=== PATIENT | female | born 1960 | race Two or more races ===

== ENCOUNTER 2017-07-11 15:38 | Emergency (ER) | payer OTHER ==
--- NOTE | 2017-07-11 16:18 | EDM.PDOC ---
ED HPI GENERAL MEDICAL PROBLEM - General Chief Complaint: Back Pain or Injury Stated Complaint: BACK PAIN Time Seen by Provider: 07/11/17 15:53 Source of Information: Reports: Patient History Limitations: Reports: No Limitations - History of Present Illness INITIAL COMMENTS - FREE TEXT/NARRATIVE: HISTORY AND PHYSICAL: History of present illness: Patient fell approximately 2 weeks ago on the ice landing on her buttocks. Since that time she had had some low back pain that radiates into the left gluteal. She states she can feel a "ball" to the left low back. She denies hitting her head or any loss of consciousness. Denies any numbness or tingling to her lower extremities. She does not take any blood thinners. She ambulates without difficulty. No urinary or bowel incontinence. Review of systems: As per history of present illness and below otherwise all systems reviewed and negative. Past medical history: As per history of present illness and as reviewed below otherwise noncontributory. Surgical history: As per history of present illness and as reviewed below otherwise noncontributory. Social history: No reported history of drug or alcohol abuse. Family history: As per history of present illness and as reviewed below otherwise noncontributory. Physical exam: General: Well-developed and well-nourished 57-year-old female. Alert and oriented. Nontoxic appearing and in no acute distress HEENT: Atraumatic, normocephalic, pupils reactive, negative for conjunctival pallor or scleral icterus, mucous membranes moist, throat clear, neck supple, nontender, trachea midline. Lungs: Clear to auscultation, breath sounds equal bilaterally, chest nontender. Heart: S1S2, regular, negative for clicks, rubs, or JVD. Abdomen: Soft, nondistended, nontender. Negative for masses or hepatosplenomegaly. Negative for costovertebral tenderness. Pelvis: Stable nontender. Genitourinary: Deferred. Rectal: Deferred. C-Spine/Back: No pinpoint vertebral tenderness upon palpation. Able to walk on her toes and heels without difficulty. Gait is steady and even. Does have some muscular tenderness over the left posterior hip into the glute. Extremities: Moves all extremities per self with full range of motion -deficits noted. She is negative for cords or calf pain. Neurovascular unremarkable. Neuro: Awake, alert, oriented. Cranial nerves II through XII unremarkable. Cerebellum unremarkable. Motor and sensory unremarkable throughout. Exam nonfocal. Mild curvature noted. Minimal degenerative disc height loss mid to lower lumbar spine with relative sparing L5-S1. No acute fracture. Prescription for Flexeril (#21, NRF) and diclofenac (#20, NRF) will be given. Gentle heat to the area. Follow up with her primary care provider in the next couple days. The patient voices understanding is agreeable to plan of care. She denies any questions at this time. Diagnostics: Lumbar xray Therapeutics: Toradol Impression: Lumbar back pain w/ sciatica Plan: 1. Please take the medications as directed. Flexeril may cause drowsiness so do not take when driving or needing to be functioning at work. Do not take any additional NSAIDs such as Ibuprofen or Aleve when taking the Diclofenac. Take with food. 2. Appply gentle heat to the area 3. Follow up with the primary caregiver in the next couple days. Return to the ED as needed and as discussed. Definitive disposition and diagnosis as appropriate pending reevaluation and review of above. Duration: Day(s): Location: Reports: Back back Pain Score (Numeric/FACES): 6 - Related Data Allergies Allergy/AdvReac Type Severity Reaction Status Date / Time No Known Allergies Allergy Verified 07/11/17 15:59 Home Meds: Home Meds . [No Known Home Meds] 07/11/17 [History] Past Medical History - Past Health History Medical/Surgical History: Denies Medical/Surgical History Social & Family History - Family History Family Medical History: Noncontributory - Tobacco Use Smoking Status *Q: Never Smoker Years of Tobacco use: 10 - Alcohol Use Days Per Week of Alcohol Use: 0 - Recreational Drug Use Recreational Drug Use: No ED ROS GENERAL - Review of Systems Review Of Systems: ROS reveals no pertinent complaints other than HPI. ED EXAM,LOWER BACK PAIN/INJURY - Physical Exam Exam: See Below (See dictation) Course - Vital Signs Last Recorded V/S: Last Vital Signs Temp 97.4 F 07/11/17 15:59 Pulse 76 07/11/17 15:59 Resp 18 07/11/17 15:59 BP 149/70 H 07/11/17 15:59 Pulse Ox 96 07/11/17 15:59 - Orders/Labs/Meds Orders: Active Orders 24 hr Category Date Time Status Lumbar Spine 2 or 3V [CR] Stat Exams 07/11/17 16:11 Taken Meds: Medications Discontinued Medications Generic Name Dose Route Start Last Admin Trade Name Gael PRN Reason Stop Dose Admin Ketorolac Tromethamine 60 mg 07/11/17 16:19 Toradol IM 07/11/17 16:20 ONETIME ONE Departure - Departure Time of Disposition: 17:34 Disposition: Home, Self-Care 01 Clinical Impression: Back pain with sciatica - Discharge Information Instructions: Sciatica, [id number] Referrals: PCP,None [Primary Care Provider] - Forms: ED Department Discharge Additional Instructions: My general discharge The following information is given to patients seen in the emergency department who are being discharged to home. This information is to outline your options for follow-up care. We provide all patients seen in our emergency department with a follow-up referral. The need for follow-up, as well as the timing and circumstances, are variable depending upon the specifics of your emergency department visit. If you don't have a primary care physician on staff, we will provide you with a referral. We always advise you to contact your personal physician following an emergency department visit to inform them of the circumstance of the visit and for follow-up with them and/or the need for any referrals to a consulting specialist. The emergency department will also refer you to a specialist when appropriate. This referral assures that you have the opportunity for follow-up care with a specialist. All of these measure are taken in an effort to provide you with optimal care, which includes your follow-up. Under all circumstances we always encourage you to contact your private physician who remains a resource for coordinating your care. When calling for follow-up care, please make the office aware that this follow-up is from your recent emergency room visit. If for any reason you are refused follow-up, please contact the [facility] Emergency Department at and asked to speak to the emergency department charge nurse. [facility] [address] [place] [id number] 1. Please take the medications as directed. Flexeril may cause drowsiness so do not take when driving or needing to be functioning at work. Do not take any additional NSAIDs such as Ibuprofen or Aleve when taking the Diclofenac. Take with food. 2. Appply gentle heat to the area 3. Follow up with the primary caregiver in the next couple days. Return to the ED as needed and as discussed. - My Orders Last 24 Hours: My Active Orders 07/11/17 16:11 Lumbar Spine 2 or 3V [CR] Stat - Assessment/Plan Last 24 Hours: My Active Orders 07/11/17 16:11 Lumbar Spine 2 or 3V [CR] Stat
[2017-07-11] MEDS ORDERED: Ketorolac 60 MG/2 ML SDV IM ONE (16:19)
--- NOTE | 2017-07-14 10:38 | CR ---
EXAM DATE: 07/11/17 PATIENT'S AGE: 57 Patient: JAVON BURNS Facility: [place], [place] Site . Site : 1960 Study: XRay Spine Lumbar [id number]/26/2018 5:09:57 PM Ordering Physician: Doctor Curry Final Report: INDICATION: Pain after fall. TECHNIQUE: Three views. IMPRESSION: Mild rightward curve centered L3 could be positional or mild scoliosis. Minimal degenerative disc height loss mid to lower lumbar spine with relative sparing L5 -S1. No acute fracture. Visualized pelvis intact. Normal appearance of the sacroiliac joints. Dictated by Scott Lira MD @ Jul 11 2017 5:25PM (Electronic Signature) Report Signed by Proxy. DAISY
== END 2017-07-11 18:01 | disposition home or self-care (01) ==
LOC: MW.ED 15:38
DX: M54.42 Lumbago with sciatica, left side (principal)
CPT/HCPCS: 72100; 72100-26; 99283; 99284

== ENCOUNTER 2018-10-20 23:15 | Emergency (ER) | payer MEDICAID, OTHER ==
[2018-10-20] MEDS ORDERED: Sodium Chloride 0.9% 2.5 ML Syringe FLUSH PRN (23:40)
[2018-10-20] MEDS ORDERED: Sodium Chloride 0.9% 10 ML Syringe FLUSH PRN (23:40)
--- NOTE | 2018-10-20 23:45 | EDM.PDOC ---
ED HPI GENERAL MEDICAL PROBLEM - General Chief Complaint: General Stated Complaint: DIZZINESS Time Seen by Provider: 10/20/18 23:24 - History of Present Illness INITIAL COMMENTS - FREE TEXT/NARRATIVE: HISTORY AND PHYSICAL: History of present illness: The patient is a 58 year-old female who presents with multiple complaints to the ED. She says she has had tingling intermittently of her lower extremities for greater than 1 year and she has met with a provider at [facility] regarding that. She is currently having her thyroid evaluated and has an ultrasound scheduled per the computer. She presents today for evaluation of a nosebleed that she has had on and off sporadically but today it was mostly bleeding from the right side of her nose and it seemed to take a long time for it to stop but it is unclear how she was trying to stop it with the pressure. She does not have a headache but she has had intermittent dizziness but no syncope. She has no chest pain or shortness of breath and no abdominal pain but she says that today she had 3 episodes of watery diarrhea and there was blood in it. She has never had GI problems and denies abdominal surgical procedures. She has no pain with a bowel movement in her abdomen or in her anus/rectal area. The patient has no flank pain but says she has had increased urine output without dysuria or hematuria. She is eating and drinking normally. She has no focal weakness and she has not fallen hit her head or passed out. She has no head neck or back pain. With the diarrhea today she did not have fevers chills or upper respiratory symptoms and she has had no nausea or vomiting. In general the patient's symptoms to be all over the map and is unclear what she has discussed with her provider at [facility] and what she has not had addressed there. I have no access to that information. I did discuss with the patient her elevated blood pressure here on initial triage and she says she has no history of hypertension. Review of systems: As per history of present illness and below otherwise all systems reviewed and negative. Past medical history: As per history of present illness and as reviewed below otherwise noncontributory. Surgical history: As per history of present illness and as reviewed below otherwise noncontributory. Social history: No reported history of drug or alcohol abuse. Family history: As per history of present illness and as reviewed below otherwise noncontributory. Physical exam: General: Well-developed well-nourished female who is nontoxic and vital signs are noted by me. She ambulates around the ED and moves very easily. HEENT: Atraumatic, normocephalic, pupils reactive, negative for conjunctival pallor or scleral icterus, mucous membranes moist, throat clear, neck supple, nontender, trachea midline. There is no cervical adenopathy or nuchal rigidity and on examination of her nose there is no evidence of any excoriation or bleeding on the right side which is the area she says was bleeding but there is irritation of the mucosal surface throughout the left side and in the anterior turbinates. Lungs: Clear to auscultation, breath sounds equal bilaterally, chest nontender. Heart: S1S2, regular rhythm and slightly tachycardic rate on my evaluation, negative for clicks, rubs, or JVD. There are no overt murmurs appreciated Abdomen: Soft, nondistended, nontender. Negative for masses or hepatosplenomegaly. Negative for costovertebral tenderness. Pelvis: Stable nontender. Genitourinary: Deferred. Rectal: No external masses or fissures and no internal masses on digital exam. There is only a scant amount of mucus and small bit of stool in the vault which is Hemoccult positive but visually looks light brown Extremities: Atraumatic, negative for cords or calf pain. Neurovascular unremarkable. Full range of motion without defects or deficits and no pedal edema or leg asymmetry Neuro: Awake, alert, oriented. Cranial nerves II through XII unremarkable. Cerebellum unremarkable. Motor and sensory unremarkable throughout. Exam nonfocal. Diagnostics: EKG CBC CMP INR UA with reflex CT scan of the head orthostatic vitals one view chest x-ray Therapeutics: IV O2 monitor I discussed with the patient that she would need further workup of all of her symptoms with her provider at [facility] and that she needed to contact her this morning to discuss today's ER visit. There are multiple issues that need to be addressed on an outpatient basis including possible colonoscopy for her diarrhea with rectal bleeding if that continues, her hypertension here to see whether or not that needs pharmacologic management as well as her chronic problems of the paresthesias. She and her family at bedside state understanding. Patient is also aware that she has a hiatal hernia but she tells me that she has no symptoms Impression: Diarrhea with rectal bleeding stable, episodic lightheadedness stable; hypertension History of anterior epistaxis stable, history of paresthesias chronic stable Incidental hiatal hernia Definitive disposition and diagnosis as appropriate pending reevaluation and review of above. - Related Data Allergies Allergy/AdvReac Type Severity Reaction Status Date / Time No Known Allergies Allergy Verified 10/20/18 23:33 Home Meds: Home Meds . [No Known Home Meds] 07/11/17 [History] Past Medical History - Past Health History Medical/Surgical History: Denies Medical/Surgical History [employer] History: Reports: Neurological History: Reports: Vertigo Psychiatric History: Reports: Depression - Past Surgical History Female Surgical History: Reports: Section, Hysterectomy Social & Family History - Family History Family Medical History: Noncontributory - Tobacco Use Smoking Status *Q: Never Smoker - Recreational Drug Use Recreational Drug Use: No ED ROS GENERAL - Review of Systems Review Of Systems: ROS reveals no pertinent complaints other than HPI. ED EXAM, GENERAL - Physical Exam Exam: See Below (See dictation) Course - Vital Signs Last Recorded V/S: Last Vital Signs Temp 36.2 C 10/20/18 23:29 Pulse 102 H 10/20/18 23:29 Resp BP 171/104 H 10/20/18 23:29 Pulse Ox 99 10/20/18 23:29 Orthostatic Blood Pressure [ 178/107 Standing] Orthostatic Blood Pressure [ 168/99 Sitting] Orthostatic Blood Pressure [ 147/98 Supine] - Orders/Labs/Meds Orders: Active Orders 24 hr Category Date Time Status Cardiac Monitoring [RC] . DIRECTED Care 10/20/18 23:40 Active EKG Documentation Completion [RC] STAT Care 10/20/18 23:31 Active Orthostatic Vital Signs [RC] ASDIRECTED Care 10/20/18 23:31 Active Oxygen Therapy, ED [RC] ASDIRECTED Care 10/20/18 23:40 Active Pulse Oximetry [RC] ASDIRECTED Care 10/20/18 23:40 Active Sodium Chloride 0.9% [Saline Flush] Med 10/20/18 23:40 Active 10 ml FLUSH ASDIRECTED PRN Sodium Chloride 0.9% [Saline Flush] Med 10/20/18 23:40 Active 2.5 ml FLUSH ASDIRECTED PRN Saline Lock Insert [OM.PC] Stat Oth 10/20/18 23:40 Ordered Medication Orders Sodium Chloride (Saline Flush) 10 ml FLUSH ASDIRECTED PRN PRN Reason: Keep Vein Open Sodium Chloride (Saline Flush) 2.5 ml FLUSH ASDIRECTED PRN PRN Reason: Keep Vein Open Labs: Laboratory Tests 10/20/18 10/20/18 10/20/18 Range/Units 23:46 23:46 23:46 WBC 9.23 (4.0-11.0) K/uL RBC 5.20 (4.30-5.90) M/uL Hgb 11.4 L (12.0-16.0) g/dL Hct 37.8 (36.0-46.0) % MCV 72.7 L (80.0-98.0) fL MCH 21.9 L (27.0-32.0) pg MCHC 30.2 L (31.0-37.0) g/dL RDW Std Deviation 45.4 (28.0-62.0) fl RDW Coeff of Abebe 17 H (11.0-15.0) % Plt Count 335 (150-400) K/uL MPV 8.90 (7.40-12.00) fL Neut % (Auto) 61.3 (48.0-80.0) % Lymph % (Auto) 30.6 (16.0-40.0) % Campbell % (Auto) 7.2 (0.0-15.0) % Eos % (Auto) 0.5 (0.0-7.0) % Baso % (Auto) 0.4 (0.0-1.5) % Neut # (Auto) 5.7 (1.4-5.7) K/uL Lymph # (Auto) 2.8 H (0.6-2.4) K/uL Campbell # (Auto) 0.7 (0.0-0.8) K/uL Eos # (Auto) 0.1 (0.0-0.7) K/uL Baso # (Auto) 0.0 (0.0-0.1) K/uL Nucleated RBC % 0.0 /100WBC Nucleated RBCs # 0 K/uL INR 0.98 Sodium 139 (136-145) mmol/L Potassium 3.8 (3.5-5.1) mmol/L Chloride 103 (98-107) mmol/L Carbon Dioxide 24.2 (21.0-32.0) mmol/L BUN 11 (7.0-18.0) mg/dL Creatinine 0.6 (0.6-1.0) mg/dL Est Cr Clr Drug Dosing 86.10 mL/min Estimated GFR (MDRD) > 60.0 ml/min Glucose 104 (74-106) mg/dL Calcium 9.2 (8.5-10.1) mg/dL Total Bilirubin 0.6 (0.2-1.0) mg/dL AST 20 (15-37) IU/L ALT 27 (14-63) IU/L Alkaline Phosphatase 70 (46-116) U/L Total Protein 8.2 (6.4-8.2) g/dL Albumin 4.2 (3.4-5.0) g/dL Globulin 4.0 (2.6-4.0) g/dL Albumin/Globulin Ratio 1.0 (0.9-1.6) Urine Color Urine Appearance Urine pH (5.0-8.0) Ur Specific Adona (1.001-1.035) Urine Protein (NEGATIVE) mg/dL Urine Glucose (UA) (NEGATIVE) mg/dL Urine Ketones (NEGATIVE) mg/dL Urine Occult Blood (NEGATIVE) Urine Nitrite (NEGATIVE) Urine Bilirubin (NEGATIVE) Urine Urobilinogen (<2.0) EU/dL Ur Leukocyte Esterase (NEGATIVE) 10/21/18 Range/Units 00:32 WBC (4.0-11.0) K/uL RBC (4.30-5.90) M/uL Hgb (12.0-16.0) g/dL Hct (36.0-46.0) % MCV (80.0-98.0) fL MCH (27.0-32.0) pg MCHC (31.0-37.0) g/dL RDW Std Deviation (28.0-62.0) fl RDW Coeff of Abebe (11.0-15.0) % Plt Count (150-400) K/uL MPV (7.40-12.00) fL Neut % (Auto) (48.0-80.0) % Lymph % (Auto) (16.0-40.0) % Campbell % (Auto) (0.0-15.0) % Eos % (Auto) (0.0-7.0) % Baso % (Auto) (0.0-1.5) % Neut # (Auto) (1.4-5.7) K/uL Lymph # (Auto) (0.6-2.4) K/uL Campbell # (Auto) (0.0-0.8) K/uL Eos # (Auto) (0.0-0.7) K/uL Baso # (Auto) (0.0-0.1) K/uL Nucleated RBC % /100WBC Nucleated RBCs # K/uL INR Sodium (136-145) mmol/L Potassium (3.5-5.1) mmol/L Chloride (98-107) mmol/L Carbon Dioxide (21.0-32.0) mmol/L BUN (7.0-18.0) mg/dL Creatinine (0.6-1.0) mg/dL Est Cr Clr Drug Dosing mL/min Estimated GFR (MDRD) ml/min Glucose (74-106) mg/dL Calcium (8.5-10.1) mg/dL Total Bilirubin (0.2-1.0) mg/dL AST (15-37) IU/L ALT (14-63) IU/L Alkaline Phosphatase (46-116) U/L Total Protein (6.4-8.2) g/dL Albumin (3.4-5.0) g/dL Globulin (2.6-4.0) g/dL Albumin/Globulin Ratio (0.9-1.6) Urine Color YELLOW Urine Appearance CLEAR Urine pH 6.0 (5.0-8.0) Ur Specific Adona 1.025 (1.001-1.035) Urine Protein NEGATIVE (NEGATIVE) mg/dL Urine Glucose (UA) NEGATIVE (NEGATIVE) mg/dL Urine Ketones TRACE H (NEGATIVE) mg/dL Urine Occult Blood NEGATIVE (NEGATIVE) Urine Nitrite NEGATIVE (NEGATIVE) Urine Bilirubin NEGATIVE (NEGATIVE) Urine Urobilinogen 0.2 (<2.0) EU/dL Ur Leukocyte Esterase NEGATIVE (NEGATIVE) Meds: Medications Generic Name Dose Route Start Last Admin Trade Name Freq PRN Reason Stop Dose Admin Sodium Chloride 10 ml 10/20/18 23:40 Saline Flush FLUSH ASDIRECTED PRN Keep Vein Open Sodium Chloride 2.5 ml 05/07/19 23:40 Saline Flush FLUSH ASDIRECTED PRN Keep Vein Open Departure - Departure Time of Disposition: 00:50 Disposition: Home, Self-Care 01 Condition: Good Clinical Impression: Rectal bleeding, Multiple complaints Diarrhea Qualifiers: Diarrhea type: unspecified type Qualified Code(s): R19.7 - Diarrhea, unspecified Hypertension Qualifiers: Hypertension type: unspecified Qualified Code(s): I10 - Essential (primary) hypertension - Discharge Information Referrals: PCP,None [Primary Care Provider] - Forms: ED Department Discharge Additional Instructions: The following information is given to patients seen in the emergency department who are being discharged to home. This information is to outline your options for follow-up care. We provide all patients seen in our emergency department with a follow-up referral. The need for follow-up, as well as the timing and circumstances, are variable depending upon the specifics of your emergency department visit. If you don't have a primary care physician on staff, we will provide you with a referral. We always advise you to contact your personal physician following an emergency department visit to inform them of the circumstance of the visit and for follow-up with them and/or the need for any referrals to a consulting specialist. The emergency department will also refer you to a specialist when appropriate. This referral assures that you have the opportunity for followup care with a specialist. All of these measure are taken in an effort to provide you with optimal care, which includes your followup. Under all circumstances we always encourage you to contact your private physician who remains a resource for coordinating your care. When calling for followup care, please make the office aware that this follow-up is from your recent emergency room visit. If for any reason you are refused follow-up, please contact the [facility] emergency department at and ask to speak to the emergency department charge nurse. [address] [place] [address] Please contact her provider at [facility] as you have issues that need to be addressed by her including her blood pressure and further care for your diarrhea with bleeding. Please also discussed with her the testing that you have scheduled on her thyroid. Return to ER as needed and as discussed. Push hydration - My Orders Last 24 Hours: My Active Orders 10/20/18 23:31 EKG Documentation Completion [RC] STAT Orthostatic Vital Signs [RC] ASDIRECTED 10/20/18 23:40 Cardiac Monitoring [RC] . DIRECTED Oxygen Therapy, ED [RC] ASDIRECTED Pulse Oximetry [RC] ASDIRECTED Sodium Chloride 0.9% [Saline Flush] 10 ml FLUSH ASDIRECTED PRN Sodium Chloride 0.9% [Saline Flush] 2.5 ml FLUSH ASDIRECTED PRN Saline Lock Insert [OM.PC] Stat - Assessment/Plan Last 24 Hours: My Active Orders 10/20/18 23:31 EKG Documentation Completion [RC] STAT Orthostatic Vital Signs [RC] ASDIRECTED 10/20/18 23:40 Cardiac Monitoring [RC] . DIRECTED Oxygen Therapy, ED [RC] ASDIRECTED Pulse Oximetry [RC] ASDIRECTED Sodium Chloride 0.9% [Saline Flush] 10 ml FLUSH ASDIRECTED PRN Sodium Chloride 0.9% [Saline Flush] 2.5 ml FLUSH ASDIRECTED PRN Saline Lock Insert [OM.PC] Stat
[2018-10-21 00:27] LABS: CHLORIDE,CL 103 mmol/L (98-107); SODIUM,NA 139 mmol/L (136-145)
--- NOTE | 2018-10-21 00:31 | CR ---
INDICATION: Pain, shortness of breath TECHNIQUE: Chest 1 view. COMPARISON: None FINDINGS: Cardiovascular and mediastinum: Heart size and vasculature are normal in caliber and appearance. Mediastinum is within normal limits. Hiatal hernia with air-fluid level. Lungs and pleural space: Lungs are clear. No sign of infiltrate or mass. No sign of pleural effusion. No pneumothorax. Bones and soft tissues: No significant findings. IMPRESSION: No acute pulmonary or cardiac abnormalities. Large hiatal hernia with air-fluid level. Dictated by Jayson Harvey MD @ 10/21/2018 12:29:20 AM Dictated by: Jayson Harvey MD @ 10/21/2018 00:29:25 (Electronically Signed)
--- NOTE | 2018-10-21 00:37 | CT ---
INDICATION: Dizziness TECHNIQUE: CT head without contrast. COMPARISON: None FINDINGS: CSF spaces: Within normal limits for age. Brain parenchyma: The duran-white differentiation is normal. No sign of mass, hemorrhage, or midline shift. Skull base and calvarium: The visualized paranasal sinuses and mastoid air cells demonstrate no acute or significant findings. The visualized orbits are grossly unremarkable. No skull fractures. IMPRESSION: Unremarkable noncontrast head CT. Dictated by Jayson Harvey MD @ 10/21/2018 12:35:35 AM Please note that all CT scans at this facility use dose modulation, iterative reconstruction, and/or weight-based dosing when appropriate to reduce radiation dose to as low as reasonably achievable. Dictated by: Jayson Harvey MD @ 10/21/2018 00:35:41 (Electronically Signed)
== END 2018-10-21 01:12 | disposition home or self-care (01) ==
LOC: MW.ED 23:15 → MW.OB 23:24 → MW.ED 10-21 01:12
DX: R19.7 Diarrhea, unspecified (principal); K44.9 Diaphragmatic hernia without obstruction or gangrene; I10 Essential (primary) hypertension
CPT/HCPCS: 36415; 70450; 70450-26; 71045; 71045-26; 80053; 81003; 85025; 85610; 93005; 99284; 99284-25

== ENCOUNTER 2019-01-05 07:06 | Day surgery (SDC) | payer MEDICAID, OTHER ==
[~2019-01-05 07:06] MED LIST: Lactated Ringers 1,000 ML IV SCH; Lidocaine 2% 5 ML SDV ONE; Propofol 200 MG/20 ML SDV ONE; Sodium Chloride 0.9% 10 ML SDV IV PRN; Sodium Chloride 0.9% 10 ML Syringe FLUSH PRN; Sodium Chloride 0.9% 2.5 ML Syringe FLUSH PRN; fentaNYL 100 MCG/2 ML SDV ONE
--- NOTE | 2019-01-05 08:02 | PCM.PREANE ---
Preanesthetic Assessment - Anesthesia/Transfusion/Family Hx Anesthesia History: Prior Anesthesia Without Reaction Family History of Anesthesia Reaction: No Transfusion History: No Prior Transfusion(s) - Review of Systems General: No Symptoms Pulmonary: No Symptoms Cardiovascular: No Symptoms Gastrointestinal: No Symptoms Neurological: No Symptoms Other: Reports: None - Physical Assessment NPO Status Date: 01/04/19 Height: 5 ft 4 in Weight: 75.75 kg ASA Class: 2 Mental Status: Alert & Oriented x3 Airway Class: Mallampati = 3 Dentition: Reports: Missing Tooth/Teeth (missing central maxillary incisors) ROM/Head Extension: Full Lungs: Clear to Auscultation, Normal Respiratory Effort Cardiovascular: Regular Rate, Regular Rhythm - Allergies Allergies/Adverse Reactions: Allergies Allergy/AdvReac Type Severity Reaction Status Date / Time No Known Allergies Allergy Verified 12/31/18 12:00 - Blood Blood Available: No - Anesthesia Plan Pre-Op Medication Ordered: None - Acknowledgements Anesthesia Type Planned: General Anesthesia Pt an Appropriate Candidate for the Planned Anesthesia: Yes Alternatives and Risks of Anesthesia Discussed w Pt/Guardian: Yes Pt/Guardian Understands and Agrees with Anesthesia Plan: Yes Additional Comments: anes prob list: htn- stopped lisinopril 7 day ago, LBP- stopped gabipentin 7 days ago, anemia with Hb of 10.9 plan: tiva PreAnesthesia Questionnaire - Past Health History Medical/Surgical History: Denies Medical/Surgical History HEENT History: Reports: Other (See Below) Other HEENT History: uses reading glasses Cardiovascular History: Reports: Hypertension Genitourinary History: Reports: None 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: Reports: Neurological History: Psychiatric History: Reports: Anxiety, Other (See Below) Other Psychiatric History: Claustrophobic Hematologic History: Reports: Iron Deficiency - Past Surgical History Female Surgical History: Reports: Tubal Ligation - SUBSTANCE USE Smoking Status *Q: Never Smoker Recreational Drug Use History: No - HOME MEDS Home Medications: Home Meds Ferrous Sulfate 325 mg PO DAILY 12/31/18 [History] Gabapentin [Neurontin] 300 mg PO TID 12/31/18 [History] Lisinopril 10 mg PO QAM 12/31/18 [History] - CURRENT (IN HOUSE) MEDS Current Meds: Current Medications Lactated Ringer's (Ringers, Lactated) 1,000 mls @ 125 mls/hr IV ASDIRECTED JASSI Sodium Chloride (Saline Flush) 10 ml FLUSH ASDIRECTED PRN PRN Reason: Keep Vein Open Sodium Chloride (Saline Flush) 2.5 ml FLUSH ASDIRECTED PRN PRN Reason: Keep Vein Open Sodium Chloride (Saline Flush) 10 ml FLUSH ASDIRECTED PRN PRN Reason: Keep Vein Open Sodium Chloride (Saline Flush) 2.5 ml FLUSH ASDIRECTED PRN PRN Reason: Keep Vein Open Sodium Chloride (Normal Saline) 10 ml IV ASDIRECTED PRN PRN Reason: IV Use Discontinued Medications Fentanyl (Sublimaze) Confirm Administered Dose 100 mcg .ROUTE .STK-MED ONE Stop: 01/05/19 07:07 Lidocaine (Xylocaine-Mpf 2%) Confirm Administered Dose 5 ml .ROUTE .STK-MED ONE Stop: 01/05/19 07:07 Propofol (Diprivan 20 Ml) Confirm Administered Dose 400 mg .ROUTE .STK-MED ONE Stop: 01/05/19 07:07
[2019-01-05] MEDS ORDERED: Midazolam 1 MG/ML 2 ML SDV ONE (09:21)
--- NOTE | 2019-01-05 10:13 | PCM.OPNOTE ---
- General Post-Op/Procedure Note Date of Surgery/Procedure: 01/05/19 Operative Procedure(s): Diagnostic EGD and colonoscopy Findings: Hiatal hernia (large) and diverticulosis Pre Op Diagnosis: Anemic Post-Op Diagnosis: Hiatal hernia, diverticulosis Anest[place] [facility] [place]geon: Poonam Glynn Condition: Good
--- NOTE | 2019-01-05 10:32 | PCM.POSTAN ---
POST ANESTHESIA ASSESSMENT - MENTAL STATUS Mental Status: Alert, Oriented - VITAL SIGNS Pulse Rate: 68 SaO2: 94 (RA) Resp Rate: 14 Blood Pressure: 141/81 - RESPIRATORY Respiratory Status: Respiratory Rate WNL, Airway Patent, O2 Saturation Stable - CARDIOVASCULAR CV Status: Pulse Rate WNL, Blood Pressure Stable - GASTROINTESTINAL GI Status: No Symptoms - PAIN Pain Score: 0 - POST OP HYDRATION Hydration Status: Adequate & Stable
--- NOTE | 2019-01-05 10:44 | PCM48HPAN ---
Post Anesthesia Note - EVALUATION WITHIN 48HRS OF ANESTHETIC Vital Signs in Normal Range: Yes Patient Participated in Evaluation: Yes Respiratory Function Stable: Yes Airway Patent: Yes Cardiovascular Function Stable: Yes Hydration Status Stable: Yes Pain Control Satisfactory: Yes Nausea and Vomiting Control Satisfactory: Yes Mental Status Recovered: Yes Pulse Rate: 68 Resp Rate: 14 Blood Pressure: 141/81
--- NOTE | 2019-01-06 15:47 | OR ---
SURGEON: PAT WILKS MD DATE OF PROCEDURE: 01/05/2019 PREOPERATIVE DIAGNOSIS: Anemia. POSTOPERATIVE DIAGNOSES: 1. Large hiatal hernia. 2. Diverticulosis. PROCEDURE PERFORMED: Diagnostic EGD and colonoscopy. ANESTHESIA: MAC. INSTRUMENT USED: Olympus endoscope and colonoscope. EXTENT OF EXAM: To the second portion of the duodenum, to the cecum. PREPARATION: Good. LIMITATIONS: None. INDICATION: The patient is a 58-year-old female who presents with anemia. The patient and I discussed the need for diagnostic EGD and colonoscopy. I explained the procedures, expected perioperative course, and risks including bleeding, infection, or damage to surrounding structures including perforation. The patient verbalized understanding and wishes to proceed. PROCEDURE IN DETAIL: The patient was brought to the endoscopy suite and placed in the left lateral decubitus position. A time-out was completed verifying the patient's name, age, date of , allergies, and procedure to be performed. A bite block was placed in the patient's mouth. Monitored anesthesia care was induced and continuous oxygen was provided via nasal cannula throughout the procedure. After adequate sedation was achieved, a well-lubricated endoscope was placed in the patient's mouth and advanced under direct visualization to the second portion of the duodenum. Upon entry, I noticed a very large hiatal hernia that appeared to cause some partial rotation of the stomach and distal esophagus. Great care was taken to advance the scope carefully and safely. Once the scope had reached the second portion of duodenum, a photograph was taken. The scope was then fully withdrawn while examining the color, texture, anatomy, and integrity of the mucosa of the upper GI tract. The duodenum appeared normal. The scope was brought into the stomach and a photograph taken of the pylorus and GE junction. The patient clearly had a very large hiatal hernia. There was no evidence of gross inflammation or ulceration, but biopsies were taken of the gastric antrum, body, and fundus, and sent for histologic review and H. pylori testing. The scope was then brought into the distal esophagus. Again, this was noted to be tortuous and a photograph was taken of the GE junction. The patient's esophagus appeared mildly dilated, but otherwise was normal. The scope was removed and this portion of procedure terminated. A digital rectal exam was performed. This exam was within normal limits. A well-lubricated colonoscope was inserted in the rectum and advanced under direct visualization to the level of the cecum. The cecum was identified by both visual and anatomic landmarks. A photograph was taken of the cecal cap as well as with the scope retroflexed within the cecum. Scope was then fully withdrawn while examining the color, texture, anatomy, and integrity of the mucosa from the cecum to the anal canal. The patient was noted to have diverticulosis in the sigmoid colon. The scope was brought into the rectum and retroflexed to allow visualization of the anal canal opening. This appeared normal and a photograph was taken. The scope was then straightened out and fully withdrawn. The [id number] time was 10 minutes. The patient tolerated the procedure well and was taken to PACU in a stable condition. ENDOSCOPIC DIAGNOSES: 1. Large hiatal hernia. 2. Diverticulosis. RECOMMENDATIONS: Follow up in clinic in 2 weeks. GILBERT ALEXANDRE /[id number]
== END 2019-01-05 11:08 | disposition home or self-care (01) ==
LOC: MW.SDS 07:06
PROVIDERS: ATTEND Surgery
DX: K62.5 Hemorrhage of anus and rectum (principal); D50.9 Iron deficiency anemia, unspecified; K57.30 Diverticulosis of large intestine without perforation or abscess without bleeding; K44.9 Diaphragmatic hernia without obstruction or gangrene; K22.8 Other specified diseases of esophagus; I10 Essential (primary) hypertension; Z79.899 Other long term (current) drug therapy
CPT/HCPCS: 43235; 45378; J2001; J2250; J2704; J3010; J7120; 00813